=== PATIENT | female | born 1990 | race African-American/Black ===

== ENCOUNTER → 2017-01-24 09:14 | Outpatient (CLI) | payer MEDICAID | END | disposition home or self-care (01) | LOC: D.US 09:14 | DX: N63 Unspecified lump in breast (principal) ==

== ENCOUNTER 2017-05-28 22:11 | Emergency (ER) | payer MEDICAID | END 2017-05-28 23:55 | disposition home or self-care (01) | LOC: D.ER 22:11 | DX: J03.90 Acute tonsillitis, unspecified (principal) ==